=== PATIENT | male | born 1975 | race Hispanic/Latino ===

== ENCOUNTER 2021-03-14 11:06 | Emergency (ER) | payer OTHER ==
[~2021-03-14] VITALS: Ht 152.4 cm; Wt 55.0 kg
[~2021-03-14 11:06] MED LIST: ACCU-CHEK EX; CIPRO500 MG OR; METFORMIN500 M1 OR
[2021-03-14] MEDS ORDERED: IBUPROFEN600 MG PO (20:58)
[2021-03-14 21:18] VITALS: BP 109/77
== END 2021-03-14 21:30 | disposition home or self-care (01) | DRG 605 ==
LOC: ED 11:06
DX: S70.12XA Contusion of left thigh, initial encounter (principal); S00.83XA Contusion of other part of head, initial encounter; S00.211A Abrasion of right eyelid and periocular area, initial encounter; V49.40XA Driver injured in collision with unspecified motor vehicles in traffic accident, initial encounter

== ENCOUNTER 2021-05-03 11:53 | Observation (INO) | payer SELFPAY ==
[~2021-05-03] VITALS: Ht 152.4 cm; Wt 49.0 kg
[~2021-05-03 11:53] MED LIST changes: +IBUPROFEN600 MG PO
--- NOTE | 2021-05-03 12:15 | NUR ---
AMBULATED TO ROOM WITH STEADY GAIT, WHEELCHAIR OFFERED AND DECLINED.
[2021-05-03 13:02] LABS: IMMATURE GRANULOCYTES 0.2 % (0.0-5.0); MEAN CELL VOLUME 97.4 fL CALC (80.0-100.0); MEAN CORPUSCULAR HGB 33.5 pG CALC (26.0-32.0); MEAN CORPUSCULAR HGB CONC 34.4 g/dL CAL (32.0-36.0); NEUT# 2.88 thou/uL (1.82-7.42); RED BLOOD COUNT 3.46 mill/uL (4.70-6.10); RED CELL DISTRI WIDTH 11.2 % (11.5-15.5)
[2021-05-03 13:18] LABS: HEMATOCRIT 33.7 % (39.0-50.0); HEMOGLOBIN 11.6 g/dl (14.0-18.0)
--- NOTE | 2021-05-03 13:26 | NUR ---
PT STABLE ON MONITOR. IV FLUIDS INFUSING WITHOUT DIFFICULTY. CALL LIGHT WITHIN REACH.
[2021-05-03 13:37] LABS: ALBUMIN 4.4 g/dL (3.2-5.0); BILIRUBIN, TOTAL 0.4 mg/dL (0.0-1.4); CARBON DIOXIDE 23 mmol/l (22-30); CREATININE 1.2 mg/dL (0.7-1.3); GFR > 60 ML/MIN (>=60 (CALC)); GFR FOR AFR.AMER. > 60 ML/MIN (>=60 (CALC)); POTASSIUM 4.3 mmol/l (3.5-5.1); TOTAL PROTEIN 8.1 g/dL (6.3-8.2)
[2021-05-03 13:52] LABS: ALKALINE PHOSPHATASE 273 u/l (38-126); ANION GAP 21 (6-22 (CALC)); BUN 37 mg/dL (9-20); BUN/CREATININE RATIO 31 (12-20 (CALC)); CHLORIDE 87 mmol/l (95-108); SGOT/AST 134 u/l (17-59); SODIUM 127 mmol/l (137-146)
--- NOTE | 2021-05-03 14:35 | NUR ---
IV MEDS CONTINUE TO INFUSE WITHOUT DIFFICULTY. PROVIDER AT BEDSIDE DISCUSSING PLAN OF CARE.
[2021-05-03 15:24] LABS: URINE BILIRUBIN - DIPSTICK NEGATIVE (NEGATIVE); URINE BLOOD DIPSTICK NEGATIVE (NEGATIVE); URINE CLARITY CLEAR; URINE COLOR YELLOW; URINE GLUCOSE - DIPSTICK >=1000 mg/dL (NEGATIVE); URINE KETONE NEGATIVE (NEGATIVE); URINE LEUK ESTERASE NEGATIVE (Negative); URINE NITRITE - DIPSTICK NEGATIVE (Negative); URINE PROTEIN - DIPSTICK NEGATIVE (NEG-TRACE); URINE UROBILINOGEN - DIPSTICK 0.2 E.U./dL (0.2)
--- NOTE | 2021-05-03 15:35 | NUR ---
REPEAT BGL 370, PROVIDER NOTIFIED.
--- NOTE | 2021-05-03 16:04 | NUR ---
PT UP TO BATHROOM WITH STEADY GAIT. AT BEDSIDE. VITALS STABLE. FLUIDS CONTINUING TO INFUSE. NO CONCERNS VOICED.
--- NOTE | 2021-05-03 17:20 | NUR ---
NO CHANGE FROM PREVIOUS NOTE. IV FLUIDS COMPLETED. ACCUCHK DONE. BGL IMPROVED AT 301
--- NOTE | 2021-05-03 18:04 | NUR ---
NO CONCERNS VOICED. PENDING LAB RESULTS.
--- NOTE | 2021-05-03 19:14 | NUR ---
ATTEMPTED TO CALL REPORT TO ICU, NURSE UNAVAILABLE.
--- NOTE | 2021-05-03 19:35 | NUR ---
TELEPHONE REPORT CALLED TO Roula POLK RN IN ICU.
--- NOTE | 2021-05-03 19:45 | NUR ---
Admission Note Report Given to: Roula POLK RN Transported by: X Wheelchair Stretcher Transported with: X Nurse Transporter X Patent IV O2 Wagon Washer Location: X ICU \ MS2
--- NOTE | 2021-05-03 19:55 | NUR ---
PATIENT ARRIVED AT 1955 VIA WHEELCHAIR FROM ER. PATIENT IS ALERT AND ORIENTED X4. ASHLEY USED TO TRANSLATE, PATIENT K[place]H SPEAKING ONLY. INSULIN DRIP STARTED ONCE ON THE FLOOR BY ER NURSE. FALL AND SAFTEY PRECAUTIONS IN PLACE. IV INFUSING INSULIN DRIP. PATIENT ORIENTED TO BED, CALL LIGHT, AND ROOM. PLAN OF CARE DISCUSSED. PATIENT INFORMED TO CALL WITH ANY QUESTIONS OR CONCERNS. SR ON TELE. CALL LIGHT WITHIN REACH.
[2021-05-03 20:00] VITALS: BP 145/93
[2021-05-03 20:08] LABS: BUN 26 mg/dL (9-20); BUN/CREATININE RATIO 37 (12-20 (CALC)); CARBON DIOXIDE 21 mmol/l (22-30); CREATININE 0.7 mg/dL (0.7-1.3); GFR > 60 ML/MIN (>=60 (CALC)); GFR FOR AFR.AMER. > 60 ML/MIN (>=60 (CALC))
[2021-05-03 20:09] LABS: ANION GAP 15 (6-22 (CALC)); CHLORIDE 101 mmol/l (95-108); POTASSIUM 3.3 mmol/l (3.5-5.1); SODIUM 134 mmol/l (137-146)
--- NOTE | 2021-05-03 20:35 | NUR ---
NEW ORDERS GIVEN BY DR. NIEVES. ORDERS TO STOP INSULIN DRIP AT 2200 AFTER 2100 LEVEMIR IS GIVEN. 40 MEQ PO KCL X 1 DOSE TO BE GIVEN NOW. 1/2 NS W/40 MEQ KCL @ 125 ML/HR FOR FLUIDS. MED DOSE SLIDING SCALE TO BE ADDED. CLEAR LIQUID DIET TO BE STARTED. RBVO.
--- NOTE | 2021-05-03 20:40 | NUR ---
PATIENT GIVEN SUGAR FREE JELLO.
[2021-05-03 22:00] VITALS: BP 173/94
--- NOTE | 2021-05-03 22:00 | NUR ---
INSULIN DRIP STOPPED.
[2021-05-04] VITALS (7 sets, daily range): BP systolic 126–151; BP diastolic 74–91
--- NOTE | 2021-05-04 | NUR ---
PATIENT RESTING WITH EYES CLOSED. RESP EVEN AND UNLABORED. NO S/S OF DISTRESS NOTED. FALL AND SAFTEY PRECAUTION IN PLACE
[2021-05-04 01:27] LABS: ANION GAP 12 (6-22 (CALC)); BUN 23 mg/dL (9-20); BUN/CREATININE RATIO 36 (12-20 (CALC)); CARBON DIOXIDE 23 mmol/l (22-30); CHLORIDE 104 mmol/l (95-108); CREATININE 0.6 mg/dL (0.7-1.3); GFR > 60 ML/MIN (>=60 (CALC)); GFR FOR AFR.AMER. > 60 ML/MIN (>=60 (CALC)); POTASSIUM 3.8 mmol/l (3.5-5.1); SODIUM 135 mmol/l (137-146)
--- NOTE | 2021-05-04 02:11 | NUR ---
UPDATED ON NEW CHEM-7 RESULTS. ORDERS GIVEN TO D/C IV FLUIDS AND KCL. SWITCH PATIENT OVER TO A DIABETIC DIET.
[2021-05-04 06:10] LABS: ANION GAP 13 (6-22 (CALC)); BUN 21 mg/dL (9-20); BUN/CREATININE RATIO 35 (12-20 (CALC)); CARBON DIOXIDE 22 mmol/l (22-30); CHLORIDE 106 mmol/l (95-108); CREATININE 0.6 mg/dL (0.7-1.3); GFR > 60 ML/MIN (>=60 (CALC)); GFR FOR AFR.AMER. > 60 ML/MIN (>=60 (CALC)); POTASSIUM 3.9 mmol/l (3.5-5.1); SODIUM 137 mmol/l (137-146)
--- NOTE | 2021-05-04 07:00 | NUR ---
PATIENT RECIEVED FROM NIGHT NURSE
--- NOTE | 2021-05-04 07:40 | NUR ---
PATIENT IS A/O X3. STATED THAT HE IS HAVING NO PAIN AT THIS TIME. CLEAR LUNG SOUNDS, ACTIVE BOWEL SOUNDS, NO EDEMA NOTED. BLOOD SUGAR IS WITHIN NORMAL RANGE. VITAL SIGNS WITHIN NORMAL LIMITS. STRONG PULSES. SAFETY MEASURES IN PLACE. CALL LIGHT IN REACH. WILL CONTINUE TO MONITOR.
--- NOTE | 2021-05-04 10:00 | NUR ---
PATIENT IS RESTING IN BED
--- NOTE | 2021-05-04 12:00 | NUR ---
PATIENT IS EATING LUNCH AT THIS TIME.
[2021-05-04] MEDS ORDERED: HUMULIN 70/30 K1 INJ SC (12:40)
--- NOTE | 2021-05-04 14:00 | NUR ---
PATIENT TALKING TO HIS AT THE BEDSIDE.
--- NOTE | 2021-05-04 14:30 | NUR ---
PATIENT GETTING READY FOR DISCHARGE.
--- NOTE | 2021-05-04 14:56 | NUR ---
PATIENT DISCHARGED, REFUSED WHEELCHAIR. PATIENT STATED "IM FINE, THANK YOU".
== END 2021-05-04 14:57 | disposition home or self-care (01) | DRG 638 ==
LOC: ED 11:53 → ED-I 18:45 → ED 18:57 → ICU 18:58
PROVIDERS: Emergency Medicine; ADMIT Internal Medicine; ATTEND Internal Medicine
DX: E11.65 Type 2 diabetes mellitus with hyperglycemia (principal); E87.1 Hypo-osmolality and hyponatremia; E87.6 Hypokalemia; F17.200 Nicotine dependence, unspecified, uncomplicated; T38.3X6A Underdosing of insulin and oral hypoglycemic [antidiabetic] drugs, initial encounter; Z91.128 Patient's intentional underdosing of medication regimen for other reason; Z79.4 Long term (current) use of insulin; Z20.822 Contact with and (suspected) exposure to COVID-19

== ENCOUNTER 2021-07-19 17:33 | Observation (INO) | payer SELFPAY ==
[~2021-07-19] VITALS: Ht 152.4 cm; Wt 60.0 kg
[~2021-07-19 17:33] MED LIST changes: +HUMULIN 70/30 K1 INJ SC
[2021-07-19 18:19] LABS: HEMATOCRIT 35.7 % (39.0-50.0); HEMOGLOBIN 12.2 g/dl (14.0-18.0); MEAN CELL VOLUME 95.2 fL CALC (80.0-100.0); MEAN CORPUSCULAR HGB 32.5 pG CALC (26.0-32.0); MEAN CORPUSCULAR HGB CONC 34.2 g/dL CAL (32.0-36.0); NEUT# 2.35 thou/uL (1.82-7.42); RED BLOOD COUNT 3.75 mill/uL (4.70-6.10); RED CELL DISTRI WIDTH 11.6 % (11.5-15.5)
[2021-07-19 18:42] LABS: ALBUMIN 4.5 g/dL (3.2-5.0); ALKALINE PHOSPHATASE 150 u/l (38-126); ANION GAP 17 (6-22 (CALC)); BUN 21 mg/dL (9-20); BUN/CREATININE RATIO 19 (12-20 (CALC)); CARBON DIOXIDE 22 mmol/l (22-30); CHLORIDE 102 mmol/l (95-108); CREATININE 1.1 mg/dL (0.7-1.3); GFR > 60 ML/MIN (>=60 (CALC)); GFR FOR AFR.AMER. > 60 ML/MIN (>=60 (CALC)); POTASSIUM 4.2 mmol/l (3.5-5.1); SGOT/AST 49 u/l (17-59); SODIUM 136 mmol/l (137-146); TOTAL PROTEIN 8.3 g/dL (6.3-8.2)
[2021-07-19 18:43] LABS: BILIRUBIN, TOTAL 0.7 mg/dL (0.0-1.4)
[2021-07-19 21:27] VITALS: BP 140/91
[2021-07-20] VITALS: BP 133/80
[2021-07-20 04:00] VITALS: BP 144/90
[2021-07-20 06:12] LABS: CHOLESTEROL HDL RATIO 2.7 (<4.4 (CALC)); MAGNESIUM 1.7 mg/dL (1.6-2.3)
[2021-07-20 07:14] VITALS: BP 157/91
[2021-07-20] MEDS ORDERED: RISPERDAL0.5 MG PO (09:38)
[2021-07-20] MEDS ORDERED: NOVOLIN 70/30 SC ×2 (09:39→09:40)
[2021-07-20] MEDS ORDERED: GABAPENTIN300 M2 PO (10:13)
[2021-07-20] MEDS ORDERED: LEVOTHYROXIN75 MCG PO (10:13)
[2021-07-20] MEDS ORDERED: LISINOPRIL5 MG PO (10:52)
[2021-07-20] MEDS ORDERED: AMARYL1 MG PO (10:52)
[2021-07-20] MEDS ORDERED: METFORMIN500 M2 PO (10:52)
[2021-07-20 11:24] VITALS: BP 156/92
[2021-07-20 11:30] VITALS: BP 156/92
== END 2021-07-20 15:56 | disposition home or self-care (01) | DRG 312 ==
LOC: ED 17:33 → ED-I 19:33 → ED 19:50 → MS2 19:51
PROVIDERS: Family Medicine; ADMIT Internal Medicine; ATTEND Internal Medicine
DX: R55 Syncope and collapse (principal); R07.9 Chest pain, unspecified; E11.9 Type 2 diabetes mellitus without complications; I10 Essential (primary) hypertension; F10.10 Alcohol abuse, uncomplicated; F17.200 Nicotine dependence, unspecified, uncomplicated; Z23 Encounter for immunization; Z79.4 Long term (current) use of insulin; Z20.822 Contact with and (suspected) exposure to COVID-19
CPT/HCPCS: G0378; J1650

== ENCOUNTER 2021-08-20 09:16 | Emergency (ER) | payer SELFPAY ==
[~2021-08-20] VITALS: Ht 152.4 cm; Wt 58.0 kg
[~2021-08-20 09:16] MED LIST changes: +AMARYL1 MG PO; +GABAPENTIN300 M2 PO; +LEVOTHYROXIN75 MCG PO; +LISINOPRIL5 MG PO; +METFORMIN500 M2 PO; +NOVOLIN 70/30 SC; +RISPERDAL0.5 MG PO
[2021-08-20 10:08] LABS: HEMATOCRIT 39.1 % (39.0-50.0); HEMOGLOBIN 13.4 g/dl (14.0-18.0); MEAN CELL VOLUME 94.2 fL CALC (80.0-100.0); MEAN CORPUSCULAR HGB 32.3 pG CALC (26.0-32.0); MEAN CORPUSCULAR HGB CONC 34.3 g/dL CAL (32.0-36.0); NEUT# 2.69 thou/uL (1.82-7.42); RED BLOOD COUNT 4.15 mill/uL (4.70-6.10); RED CELL DISTRI WIDTH 11.8 % (11.5-15.5)
[2021-08-20 10:39] LABS: PROTHROMBIN TIME 10.4 SECONDS (9.0-12.5)
[2021-08-20 10:42] LABS: ALBUMIN 4.6 g/dL (3.2-5.0); ALKALINE PHOSPHATASE 208 u/l (38-126); ANION GAP 15 (6-22 (CALC)); BILIRUBIN, TOTAL 0.6 mg/dL (0.0-1.4); BUN 24 mg/dL (9-20); BUN/CREATININE RATIO 30 (12-20 (CALC)); CARBON DIOXIDE 26 mmol/l (22-30); CHLORIDE 99 mmol/l (95-108); CREATININE 0.8 mg/dL (0.7-1.3); ETHYL ALCOHOL 0 mg/dl (0-30); GFR > 60 ML/MIN (>=60 (CALC)); GFR FOR AFR.AMER. > 60 ML/MIN (>=60 (CALC)); LIPASE 373 u/l (23-300); POTASSIUM 4.2 mmol/l (3.5-5.1); SGOT/AST 49 u/l (17-59); SODIUM 136 mmol/l (137-146); TOTAL PROTEIN 8.3 g/dL (6.3-8.2)
[2021-08-20 11:16] LABS: URINE BILIRUBIN - DIPSTICK NEGATIVE (NEGATIVE); URINE BLOOD DIPSTICK NEGATIVE (NEGATIVE); URINE COLOR YELLOW; URINE GLUCOSE - DIPSTICK >=1000 mg/dL (NEGATIVE); URINE KETONE NEGATIVE (NEGATIVE); URINE LEUK ESTERASE NEGATIVE (NEGATIVE); URINE PH 6.5 (4.5-8.0); URINE PROTEIN - DIPSTICK NEGATIVE (NEG-TRACE); URINE UROBILINOGEN - DIPSTICK 0.2 E.U./dL (0.2)
[2021-08-20 11:17] LABS: URINE NITRITE - DIPSTICK NEGATIVE (Negative)
[2021-08-20 11:47] VITALS: BP 103/70
== END 2021-08-20 11:59 | disposition home or self-care (01) | DRG 312 ==
LOC: ED 09:16
PROVIDERS: Family Medicine
DX: R55 Syncope and collapse (principal); E11.65 Type 2 diabetes mellitus with hyperglycemia; Z79.84 Long term (current) use of oral hypoglycemic drugs

== ENCOUNTER 2022-06-25 15:55 | Emergency (ER) | payer SELFPAY ==
[~2022-06-25] VITALS: Ht 152.4 cm; Wt 63.0 kg
[2022-06-25] VITALS (10 sets, daily range): BP systolic 106–140; BP diastolic 79–85
[2022-06-25] MEDS ORDERED: MELOXICAM7.5 MG PO (16:18)
[2022-06-25 16:51] LABS: ALBUMIN 4.5 g/dL (3.2-5.0); POTASSIUM 4.2 mmol/l (3.5-5.1); TOTAL PROTEIN 8.2 g/dL (6.3-8.2)
[2022-06-25 16:55] LABS: BILIRUBIN, TOTAL 0.2 mg/dL (0.0-1.4); CREATININE 3.5 mg/dL (0.7-1.3)
[2022-06-25 17:20] LABS: HEMATOCRIT 34.2 % (39.0-50.0); HEMOGLOBIN 11.5 g/dl (14.0-18.0); IMMATURE GRANULOCYTES 0.1 % (0.0-5.0); MEAN CELL VOLUME 94.5 fL CALC (80.0-100.0); MEAN CORPUSCULAR HGB 31.8 pG CALC (26.0-32.0); MEAN CORPUSCULAR HGB CONC 33.6 g/dL CAL (32.0-36.0); NEUT# 5.25 thou/uL (1.82-7.42); RED BLOOD COUNT 3.62 mill/uL (4.70-6.10)
== END 2022-06-25 18:27 | disposition home or self-care (01) | DRG 103 ==
LOC: ED 15:55
PROVIDERS: Family Medicine
DX: R51.9 Headache, unspecified (principal); N28.9 Disorder of kidney and ureter, unspecified; E11.9 Type 2 diabetes mellitus without complications; Z79.84 Long term (current) use of oral hypoglycemic drugs

== ENCOUNTER 2023-01-20 17:45 | Emergency (ER) | payer SELFPAY ==
[2023-01-20] VITALS (8 sets, daily range): BP systolic 106–125; BP diastolic 68–81
[~2023-01-20] VITALS: Ht 152.4 cm; Wt 63.5 kg
[~2023-01-20 17:45] MED LIST changes: +MELOXICAM7.5 MG PO
[2023-01-20 18:28] LABS: BASO% 0.7 % (0-3); EOS% 5.1 % (0-8); HEMATOCRIT 31.9 % (39.0-50.0); HEMOGLOBIN 10.4 g/dl (14.0-18.0); LYMPH% 26.9 % (15-41); MEAN CORPUSCULAR HGB 33.1 pG CALC (26.0-32.0); MEAN CORPUSCULAR HGB CONC 32.6 g/dL CAL (32.0-36.0); MONO% 7.9 % (2-13); NEUT# 3.63 thou/uL (1.82-7.42); NEUT% 59.4 % (42-76); RED BLOOD COUNT 3.14 mill/uL (4.70-6.10); RED CELL DISTRI WIDTH 13.1 % (11.5-15.5)
[2023-01-20 18:29] LABS: MEAN CELL VOLUME 101.6 fL CALC (80.0-100.0)
[2023-01-20 18:48] LABS: ALBUMIN 4.5 g/dL (3.2-5.0); ALKALINE PHOSPHATASE 119 u/l (38-126); CHLORIDE 114 mmol/l (95-108); POTASSIUM 4.1 mmol/l (3.5-5.1); SODIUM 142 mmol/l (137-146); TOTAL PROTEIN 7.6 g/dL (6.3-8.2)
[2023-01-20 18:54] LABS: ANION GAP 15 (6-22 (CALC)); BILIRUBIN, TOTAL 0.1 mg/dL (0.2-1.3); BUN 30 mg/dL (9-20); BUN/CREATININE RATIO 21 (12-20 (CALC)); CARBON DIOXIDE 17 mmol/l (22-30); CREATININE 1.4 mg/dL (0.7-1.3); GFR FOR AFR.AMER. > 60 ML/MIN (>=60 (CALC)); GFR OTHER RACES 54 ML/MIN (>=60 (CALC)); SGOT/AST 99 u/l (17-59)
== END 2023-01-20 19:31 | disposition home or self-care (01) | DRG 639 ==
LOC: ED 17:45
PROVIDERS: Family Medicine
DX: E11.649 Type 2 diabetes mellitus with hypoglycemia without coma (principal); Z79.84 Long term (current) use of oral hypoglycemic drugs

== ENCOUNTER 2023-02-27 10:50 | Emergency (ER) | payer SELFPAY ==
[~2023-02-27] VITALS: Ht 154.9 cm; Wt 52.2 kg
[2023-02-27 11:19] VITALS: BP 135/85
[2023-02-27 11:30] VITALS: BP 140/85
[2023-02-27] MEDS ORDERED: LEVOTHYROXIN75 MC1 PO (11:41)
[2023-02-27 11:51] LABS: BASO% 0.2 % (0-3); EOS% 0.9 % (0-8); HEMATOCRIT 34.2 % (39.0-50.0); HEMOGLOBIN 11.3 g/dl (14.0-18.0); IMMATURE GRANULOCYTES 0.1 % (0.0-5.0); LYMPH% 7.5 % (15-41); MEAN CELL VOLUME 98.8 fL CALC (80.0-100.0); MEAN CORPUSCULAR HGB 32.7 pG CALC (26.0-32.0); MONO% 9.3 % (2-13); NEUT# 11.5 thou/uL (1.82-7.42); RED BLOOD COUNT 3.46 mill/uL (4.70-6.10); RED CELL DISTRI WIDTH 11.8 % (11.5-15.5)
[2023-02-27 12:17] LABS: ALBUMIN 4.3 g/dL (3.2-5.0); ALKALINE PHOSPHATASE 133 u/l (38-126); ANION GAP 16 (6-22 (CALC)); BUN 26 mg/dL (9-20); BUN/CREATININE RATIO 28 (12-20 (CALC)); C-REACTIVE PROTEIN 5.2 mg/dL (0-0.9); CARBON DIOXIDE 20 mmol/l (22-30); CHLORIDE 104 mmol/l (95-108); CREATININE 0.9 mg/dL (0.7-1.3); GFR FOR AFR.AMER. > 60 ML/MIN (>=60 (CALC)); GFR OTHER RACES > 60 ML/MIN (>=60 (CALC)); POTASSIUM 4.7 mmol/l (3.5-5.1); SGOT/AST 27 u/l (17-59); SODIUM 136 mmol/l (137-146); TOTAL PROTEIN 7.8 g/dL (6.3-8.2)
[2023-02-27 12:18] LABS: BILIRUBIN, TOTAL 0.5 mg/dL (0.2-1.3)
[2023-02-27] MEDS ORDERED: KEFLEX500 MG PO (13:27)
[2023-02-27] MEDS ORDERED: MEDDOSEPAK PO (13:27)
[2023-02-27 13:36] VITALS: BP 140/85
== END 2023-02-27 13:45 | disposition home or self-care (01) | DRG 603 ==
LOC: ED 10:50
PROVIDERS: Nurse Practitioner
DX: L03.115 Cellulitis of right lower limb (principal); M10.09 Idiopathic gout, multiple sites; E11.40 Type 2 diabetes mellitus with diabetic neuropathy, unspecified; F10.20 Alcohol dependence, uncomplicated; F17.200 Nicotine dependence, unspecified, uncomplicated

== ENCOUNTER 2023-03-01 20:42 | Observation (INO) | payer MEDICAID ==
[~2023-03-01] VITALS: Ht 154.9 cm; Wt 52.0 kg
[2023-03-01] VITALS (11 sets, daily range): BP systolic 107–137; BP diastolic 72–83
[~2023-03-01 20:42] MED LIST changes: +KEFLEX500 MG PO; +LEVOTHYROXIN75 MC1 PO; +MEDDOSEPAK PO
[2023-03-01 21:37] LABS: BASO% 0.2 % (0-3); EOS% 0.7 % (0-8); HEMATOCRIT 32.8 % (39.0-50.0); HEMOGLOBIN 10.9 g/dl (14.0-18.0); IMMATURE GRANULOCYTES 0.2 % (0.0-5.0); LYMPH% 10.4 % (15-41); MEAN CELL VOLUME 98.5 fL CALC (80.0-100.0); MEAN CORPUSCULAR HGB 32.7 pG CALC (26.0-32.0); MEAN CORPUSCULAR HGB CONC 33.2 g/dL CAL (32.0-36.0); MONO% 9.2 % (2-13); NEUT# 13.43 thou/uL (1.82-7.42); NEUT% 79.3 % (42-76); RED BLOOD COUNT 3.33 mill/uL (4.70-6.10); RED CELL DISTRI WIDTH 11.8 % (11.5-15.5)
[2023-03-01 21:48] LABS: ALBUMIN 4.4 g/dL (3.2-5.0); ALKALINE PHOSPHATASE 125 u/l (38-126); ANION GAP 19 (6-22 (CALC)); BILIRUBIN, TOTAL 0.5 mg/dL (0.2-1.3); BUN 35 mg/dL (9-20); BUN/CREATININE RATIO 37 (12-20 (CALC)); CARBON DIOXIDE 18 mmol/l (22-30); CHLORIDE 102 mmol/l (95-108); CREATININE 0.9 mg/dL (0.7-1.3); GFR FOR AFR.AMER. > 60 ML/MIN (>=60 (CALC)); GFR OTHER RACES > 60 ML/MIN (>=60 (CALC)); POTASSIUM 4.4 mmol/l (3.5-5.1); SODIUM 135 mmol/l (137-146); TOTAL PROTEIN 8.3 g/dL (6.3-8.2)
[2023-03-01 21:51] LABS: SGOT/AST 48 u/l (17-59)
[2023-03-01] MEDS ORDERED: CEPHALEXIN500 MG PO (23:04)
[2023-03-01] MEDS ORDERED: HYDROCORTISONE30 G1 EX (23:04)
[2023-03-01] MEDS ORDERED: METFORMIN500 M2 PO (23:04)
[2023-03-01] MEDS ORDERED: PREGABALIN75 MG (23:05)
[2023-03-01] MEDS ORDERED: TRESIBA FL200 UNIT/M (23:05)
[2023-03-02 04:05] VITALS: BP 134/83
[2023-03-02 05:25] LABS: BASO% 0.3 % (0-3); EOS% 1.5 % (0-8); HEMOGLOBIN 10.7 g/dl (14.0-18.0); IMMATURE GRANULOCYTES 0.2 % (0.0-5.0); LYMPH% 16.1 % (15-41); MEAN CELL VOLUME 99.4 fL CALC (80.0-100.0); MEAN CORPUSCULAR HGB 33.2 pG CALC (26.0-32.0); MEAN CORPUSCULAR HGB CONC 33.4 g/dL CAL (32.0-36.0); MONO% 9.2 % (2-13); NEUT# 9.47 thou/uL (1.82-7.42); NEUT% 72.7 % (42-76); RED BLOOD COUNT 3.22 mill/uL (4.70-6.10); RED CELL DISTRI WIDTH 11.9 % (11.5-15.5)
[2023-03-02 05:50] LABS: ALBUMIN 3.6 g/dL (3.2-5.0); ALKALINE PHOSPHATASE 109 u/l (38-126); ANION GAP 15 (6-22 (CALC)); BILIRUBIN, TOTAL 0.3 mg/dL (0.2-1.3); BUN 23 mg/dL (9-20); BUN/CREATININE RATIO 31 (12-20 (CALC)); CARBON DIOXIDE 18 mmol/l (22-30); CHLORIDE 110 mmol/l (95-108); CREATININE 0.7 mg/dL (0.7-1.3); GFR FOR AFR.AMER. > 60 ML/MIN (>=60 (CALC)); GFR OTHER RACES > 60 ML/MIN (>=60 (CALC)); MAGNESIUM 1.8 mg/dL (1.6-2.3); POTASSIUM 3.8 mmol/l (3.5-5.1); SGOT/AST 28 u/l (17-59); SODIUM 139 mmol/l (137-146); TOTAL PROTEIN 6.9 g/dL (6.3-8.2)
[2023-03-02 06:13] VITALS: BP 111/69
[2023-03-02 15:15] VITALS: BP 95/59
[2023-03-02 19:00] VITALS: BP 95/59
[2023-03-03 03:44] VITALS: BP 131/83
[2023-03-03 04:00] VITALS: BP 131/83
[2023-03-03 05:51] LABS: BASO% 0.5 % (0-3); EOS% 3.6 % (0-8); HEMATOCRIT 32.1 % (39.0-50.0); HEMOGLOBIN 10.7 g/dl (14.0-18.0); IMMATURE GRANULOCYTES 0.2 % (0.0-5.0); LYMPH% 19.2 % (15-41); MEAN CELL VOLUME 99.4 fL CALC (80.0-100.0); MEAN CORPUSCULAR HGB 33.1 pG CALC (26.0-32.0); MEAN CORPUSCULAR HGB CONC 33.3 g/dL CAL (32.0-36.0); MONO% 8.7 % (2-13); NEUT# 6.76 thou/uL (1.82-7.42); NEUT% 67.8 % (42-76); RED BLOOD COUNT 3.23 mill/uL (4.70-6.10); RED CELL DISTRI WIDTH 11.6 % (11.5-15.5)
[2023-03-03 05:57] LABS: ALBUMIN 3.6 g/dL (3.2-5.0); ALKALINE PHOSPHATASE 96 u/l (38-126); ANION GAP 12 (6-22 (CALC)); BILIRUBIN, TOTAL 0.1 mg/dL (0.2-1.3); BUN 13 mg/dL (9-20); BUN/CREATININE RATIO 15 (12-20 (CALC)); CARBON DIOXIDE 22 mmol/l (22-30); CHLORIDE 110 mmol/l (95-108); CREATININE 0.9 mg/dL (0.7-1.3); GFR FOR AFR.AMER. > 60 ML/MIN (>=60 (CALC)); GFR OTHER RACES > 60 ML/MIN (>=60 (CALC)); MAGNESIUM 1.7 mg/dL (1.6-2.3); POTASSIUM 3.9 mmol/l (3.5-5.1); SGOT/AST 31 u/l (17-59); SODIUM 140 mmol/l (137-146); TOTAL PROTEIN 7.2 g/dL (6.3-8.2)
[2023-03-03 07:14] VITALS: BP 91/63
[2023-03-03 15:15] VITALS: BP 102/64
[2023-03-03 18:46] VITALS: BP 135/72
[2023-03-03 19:00] VITALS: BP 135/72
[2023-03-04 04:00] VITALS: BP 138/80
[2023-03-04 04:02] VITALS: BP 138/80
[2023-03-04 07:12] VITALS: BP 133/78
[2023-03-04 07:15] VITALS: BP 140/79
[2023-03-04 16:02] VITALS: BP 136/81
[2023-03-04 20:15] VITALS: BP 148/72
[2023-03-05 04:28] VITALS: BP 163/91
[2023-03-05 06:13] VITALS: BP 134/79
[2023-03-05 06:14] LABS: ALBUMIN 3.6 g/dL (3.2-5.0); ALKALINE PHOSPHATASE 128 u/l (38-126); ANION GAP 13 (6-22 (CALC)); BILIRUBIN, TOTAL 0.1 mg/dL (0.2-1.3); BUN 14 mg/dL (9-20); BUN/CREATININE RATIO 10 (12-20 (CALC)); CARBON DIOXIDE 20 mmol/l (22-30); CHLORIDE 108 mmol/l (95-108); CREATININE 1.4 mg/dL (0.7-1.3); GFR FOR AFR.AMER. > 60 ML/MIN (>=60 (CALC)); GFR OTHER RACES 54 ML/MIN (>=60 (CALC)); SGOT/AST 33 u/l (17-59); SODIUM 138 mmol/l (137-146); TOTAL PROTEIN 7.4 g/dL (6.3-8.2)
[2023-03-05 15:06] VITALS: BP 164/91
[2023-03-05 15:41] VITALS: BP 164/91
[2023-03-05 20:06] VITALS: BP 91/58
[2023-03-05 22:10] VITALS: BP 142/79
[2023-03-06 04:11] VITALS: BP 173/97
[2023-03-06 06:24] LABS: BASO% 0.4 % (0-3); EOS% 3.4 % (0-8); HEMATOCRIT 30.9 % (39.0-50.0); HEMOGLOBIN 10.1 g/dl (14.0-18.0); IMMATURE GRANULOCYTES 0.3 % (0.0-5.0); LYMPH% 13.8 % (15-41); MEAN CELL VOLUME 99.7 fL CALC (80.0-100.0); MEAN CORPUSCULAR HGB 32.6 pG CALC (26.0-32.0); MEAN CORPUSCULAR HGB CONC 32.7 g/dL CAL (32.0-36.0); MONO% 9.2 % (2-13); NEUT# 8.1 thou/uL (1.82-7.42); NEUT% 72.9 % (42-76); RED BLOOD COUNT 3.1 mill/uL (4.70-6.10); RED CELL DISTRI WIDTH 11.7 % (11.5-15.5)
[2023-03-06 06:47] LABS: ALBUMIN 3.5 g/dL (3.2-5.0); ALKALINE PHOSPHATASE 148 u/l (38-126); ANION GAP 13 (6-22 (CALC)); BUN 13 mg/dL (9-20); BUN/CREATININE RATIO 11 (12-20 (CALC)); CARBON DIOXIDE 22 mmol/l (22-30); CHLORIDE 107 mmol/l (95-108); CREATININE 1.2 mg/dL (0.7-1.3); GFR FOR AFR.AMER. > 60 ML/MIN (>=60 (CALC)); GFR OTHER RACES > 60 ML/MIN (>=60 (CALC)); MAGNESIUM 1.3 mg/dL (1.6-2.3); POTASSIUM 3.9 mmol/l (3.5-5.1); SGOT/AST 32 u/l (17-59); SODIUM 138 mmol/l (137-146); TOTAL PROTEIN 7.4 g/dL (6.3-8.2)
[2023-03-06 06:55] VITALS: BP 157/91
[2023-03-06] MEDS ORDERED: LEVAQUIN750 M1 PO (12:24)
== END 2023-03-06 13:36 | disposition home or self-care (01) | DRG 638 ==
LOC: ED 20:42 → ED-I 22:07 → ED 22:45 → MS2 22:46
PROVIDERS: Emergency Medicine; Internal Medicine; Nurse Practitioner Family; ADMIT Internal Medicine; ATTEND Internal Medicine
DX: E11.628 Type 2 diabetes mellitus with other skin complications (principal); L03.115 Cellulitis of right lower limb; L97.412 Non-pressure chronic ulcer of right heel and midfoot with fat layer exposed; E11.621 Type 2 diabetes mellitus with foot ulcer; M65.171 Other infective (teno)synovitis, right ankle and foot; E11.40 Type 2 diabetes mellitus with diabetic neuropathy, unspecified; E11.65 Type 2 diabetes mellitus with hyperglycemia; E03.9 Hypothyroidism, unspecified; F10.10 Alcohol abuse, uncomplicated; F17.200 Nicotine dependence, unspecified, uncomplicated; B96.89 Other specified bacterial agents as the cause of diseases classified elsewhere; Z79.84 Long term (current) use of oral hypoglycemic drugs; Z79.4 Long term (current) use of insulin
CPT/HCPCS: G0378; J1650

== ENCOUNTER 2023-03-11 21:53 | Emergency (ER) | payer MEDICAID ==
[~2023-03-11] VITALS: Ht 154.9 cm; Wt 160.0 kg
[2023-03-11] VITALS (8 sets, daily range): BP systolic 108–137; BP diastolic 68–78
[~2023-03-11 21:53] MED LIST changes: +CEPHALEXIN500 MG PO; +HYDROCORTISONE30 G1 EX; +LEVAQUIN750 M1 PO; +PREGABALIN75 MG; +TRESIBA FL200 UNIT/M
[2023-03-11] MEDS ORDERED: BACTRIM DS1 TAB PO (23:01)
[2023-03-11] MEDS ORDERED: CEPHALEXIN500 MG PO (23:01)
== END 2023-03-11 23:38 | disposition home or self-care (01) ==
LOC: ED 21:53
DX: L03.115 Cellulitis of right lower limb (principal); E11.9 Type 2 diabetes mellitus without complications; F17.200 Nicotine dependence, unspecified, uncomplicated; Z79.84 Long term (current) use of oral hypoglycemic drugs

== ENCOUNTER 2023-04-23 14:31 | Emergency (ER) | payer SELFPAY ==
[~2023-04-23] VITALS: Ht 154.9 cm; Wt 52.0 kg
[~2023-04-23 14:31] MED LIST changes: +BACTRIM DS1 TAB PO
[2023-04-23 14:44] VITALS: BP 135/76
[2023-04-23] MEDS ORDERED: NOVOLOG100 UNIT SC (15:04)
[2023-04-23 15:12] LABS: BASO% 0.5 % (0-3); EOS% 1.8 % (0-8); HEMATOCRIT 35.4 % (39.0-50.0); HEMOGLOBIN 11.3 g/dl (14.0-18.0); IMMATURE GRANULOCYTES 0.2 % (0.0-5.0); LYMPH% 20.1 % (15-41); MEAN CELL VOLUME 97.3 fL CALC (80.0-100.0); MEAN CORPUSCULAR HGB CONC 31.9 g/dL CAL (32.0-36.0); MONO% 10.2 % (2-13); NEUT# 6.64 thou/uL (1.82-7.42); NEUT% 67.2 % (42-76); RED BLOOD COUNT 3.64 mill/uL (4.70-6.10); RED CELL DISTRI WIDTH 12.7 % (11.5-15.5)
[2023-04-23 15:28] VITALS: BP 135/84
[2023-04-23 15:33] LABS: ALKALINE PHOSPHATASE 144 u/l (38-126); ANION GAP 17 (6-22 (CALC)); C-REACTIVE PROTEIN 1.2 mg/dL (0-0.9); CARBON DIOXIDE 18 mmol/l (22-30); CHLORIDE 108 mmol/l (95-108); CREATININE 1.1 mg/dL (0.7-1.3); GFR FOR AFR.AMER. > 60 ML/MIN (>=60 (CALC)); GFR OTHER RACES > 60 ML/MIN (>=60 (CALC)); POTASSIUM 4.6 mmol/l (3.5-5.1); SGOT/AST 33 u/l (17-59); SODIUM 139 mmol/l (137-146)
[2023-04-23 15:35] LABS: ALBUMIN 4.6 g/dL (3.2-5.0); BILIRUBIN, TOTAL 0.5 mg/dL (0.2-1.3); BUN 33 mg/dL (9-20); BUN/CREATININE RATIO 30 (12-20 (CALC)); TOTAL PROTEIN 9.6 g/dL (6.3-8.2)
[2023-04-23 16:00] VITALS: BP 128/82
[2023-04-23] MEDS ORDERED: VIBRAMYCIN100 M2 PO (16:42)
[2023-04-23 17:00] VITALS: BP 136/81
[2023-04-23 17:07] VITALS: BP 136/81
== END 2023-04-23 17:29 | disposition home or self-care (01) | DRG 603 ==
LOC: ED 14:31
PROVIDERS: Nurse Practitioner
DX: L03.115 Cellulitis of right lower limb (principal); L97.419 Non-pressure chronic ulcer of right heel and midfoot with unspecified severity; E11.621 Type 2 diabetes mellitus with foot ulcer; E11.40 Type 2 diabetes mellitus with diabetic neuropathy, unspecified; Z79.4 Long term (current) use of insulin